=== PATIENT | male | born 1985 | race Caucasian/White ===

== ENCOUNTER 2017-02-25 22:05 | Emergency (ER) | payer BC, OTHER ==
[2017-02-25 22:13] VITALS: BP 156/119
[2017-02-25] MEDS ORDERED: Lidocaine 1% with EPINEPHrine 1:100,000 20 ML MDV ONE (22:19)
[2017-02-25] MEDS ORDERED: Sodium Chloride 0.9% 10 ML Syringe FLUSH PRN (22:25)
[2017-02-25] MEDS ORDERED: Diphtheria,Pertussis(Acell),Tetanus Vaccine 0.5 ML SDV IM ONE (22:29)
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
[2017-02-26] MEDS ORDERED: Cephalexin 500 MG Cap PO ONE (00:20)
[2017-02-26] MEDS ORDERED: Lidocaine 1% with EPINEPHrine 1:100,000 20 ML MDV INJECT ONE (00:50)
[2017-02-26] MEDS ORDERED: Acetaminophen 325 MG Tab PO STA (00:50)
[2017-02-26] MEDS: Acetaminophen 325 MG Tab ONE ×2 (00:51)
--- NOTE | 2017-02-26 10:06 | CT ---
CT cervical spine Technique: Multiple axial sections were obtained from above C1 inferiorly to the bottom of T2. Reconstructed sagittal and coronal images were reviewed. Comparison: No prior cervical spine study. Findings: Visualized sinuses are clear. Posterior skull base is intact. Vertebral body heights and disc spaces are maintained. Vertebral bodies and posterior arches are intact with no fracture being seen. No bony central or bony neural foraminal stenosis is seen. No abnormal subluxation is seen on the reconstructed sagittal images. Impression: 1. Nothing acute is identified on CT study of the cervical spine. Diagnostic code #1 I agree with preliminary report issued by [facility] ([facility] report finalized on 02/26/17, 12:01 AM Central Time)
--- NOTE | 2017-02-26 10:06 | CT ---
Head CT Technique: Multiple axial sections were obtained through the brain. Intravenous contrast was not utilized. Comparison: No prior intracranial imaging. Findings: Soft tissue swelling seen within the frontal scalp with skin injury. Ventricles along with basal cisterns and sulci over the convexities are within normal limits. No abnormal parenchymal densities are seen. No evidence of intracranial hemorrhage. No midline shift or mass effect is seen. Bone window settings were reviewed which show the visualized sinuses to appear clear. No acute calvarial abnormality is seen. Impression: 1. Soft tissue swelling and scalp injury within the frontal scalp. 2. No acute intracranial abnormality is identified. Diagnostic code #2 I agree with preliminary report issued by [facility] ([facility] report finalized on 02/26/17, 12 AM Central Time)
--- NOTE | 2017-02-26 10:06 | CT ---
CT facial bones Technique: Multiple axial sections through the facial bones were obtained. Reconstructed coronal and sagittal images were reviewed. Limitations: Motion artifact is seen. Findings: Soft tissue swelling is identified within the frontal scalp. Slightly displaced nasal bone fracture is seen. No additional facial bone fracture is appreciated. Paranasal sinuses show no air-fluid levels or significant mucosal thickening. Right and left globes are symmetric. Impression: 1. Soft tissue swelling within the frontal scalp. 2. Nasal bone fracture. Diagnostic code #3 I agree with preliminary report issued by [facility] ([facility] report finalized on 02/26/17, 12:03 AM Central Time)
== END 2017-02-26 00:54 | disposition home or self-care (01) ==
LOC: JD.ED 22:05
DX: S06.0X9A Concussion with loss of consciousness of unspecified duration, initial encounter (principal); S02.2XXA Fracture of nasal bones, initial encounter for closed fracture; S01.511A Laceration without foreign body of lip, initial encounter; S01.81XA Laceration without foreign body of other part of head, initial encounter; Z23 Encounter for immunization; K70.9 Alcoholic liver disease, unspecified; F10.920 Alcohol use, unspecified with intoxication, uncomplicated; V89.9XXA Person injured in unspecified vehicle accident, initial encounter
CPT/HCPCS: 12014; 36415; 70450; 70486; 72125; 80053; 80306; 81001; 83690; 85025; 85610; 85730; 90471; 90715; 99284; A9270; G0480